=== PATIENT | male | born 1990 | race African-American/Black ===

== ENCOUNTER 2017-03-03 15:48 | Emergency (ER) | payer OTHER ==
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
[2017-03-03] MEDS ORDERED: ONDANSETRON *ODT* 4 MG TABLET SL ONE (15:59)
[2017-03-03] MEDS ORDERED: IBUPROFEN 400 MG TABLET (FP) PO ONE ×3 (15:59→16:13)
[2017-03-03 16:07] VITALS: BP 134/73; PULSE 83; TEMP 98.6; BMI 32.8
[2017-03-03] MEDS ORDERED: ONDANSETRON *ODT* 4 MG TABLET ONE (16:09)
== END 2017-03-03 17:31 | disposition home or self-care (01) ==
LOC: JER 15:48
DX: S86.911A Strain of unspecified muscle(s) and tendon(s) at lower leg level, right leg, initial encounter (principal); S40.021A Contusion of right upper arm, initial encounter; V03.90XA Pedestrian on foot injured in collision with car, pick-up truck or van, unspecified whether traffic or nontraffic accident, initial encounter; Y93.89 Activity, other specified; Y92.410 Unspecified street and highway as the place of occurrence of the external cause; R01.1 Cardiac murmur, unspecified; K21.9 Gastro-esophageal reflux disease without esophagitis
CPT/HCPCS: 73060-TC-RT; 73562-TC-RT; 99281-25

== ENCOUNTER 2017-05-21 15:37 | Emergency (ER) | payer SELFPAY ==
[2017-05-21 15:56] VITALS: BP 129/72; PULSE 84; BMI 33.4
--- NOTE | 2017-05-21 17:15 | PDOC ---
History of Present Illness - General Chief Complaint: Respiratory Stated Complaint: COUGHING BLOOD Time Seen by Provider: 05/21/17 16:12 History Source: Patient Exam Limitations: No Limitations - History of Present Illness Initial Comments: 05/21/17 17:32 Patient is a [27-year-old male with history of heart murmur, asthma, reflux, presents to the ER with nonspecific complaint. Initially reports cough this morning with blood-tinged sputum, pain to left testicle after mastubating, one week ago hit his head on a lamp and had headache. Patient's significant other in the room states that he has had intermittent tactile fevers chills bodyaches. Patient denies any chest pain or shortness of breath. Ambulatory without difficulty.] Past Medical History: [Denies]. Allergies: No known allergies Medications: [None] Family History: Non-contributory Social History: Denies smoking, alcohol use, or IVDU Vital signs on arrival are [notable for pulse of 96.] Review of Systems GENERAL/CONSTITUTIONAL: [No fever or chills. No weakness. No weight change.] HEAD, EYES, EARS, NOSE AND THROAT: [No change in vision. No ear pain or discharge. No sore throat. ] CARDIOVASCULAR: [No chest pain or shortness of breath.] RESPIRATORY: [No cough, wheezing, or hemoptysis.] GASTROINTESTINAL: [No nausea, vomiting, diarrhea or constipation. No rectal bleeding.] GENITOURINARY: [No dysuria, frequency, or change in urination.] MUSCULOSKELETAL: [No joint or muscle swelling or pain. No neck or back pain.] SKIN AND BREASTS: [No rash or easy bruising.] NEUROLOGIC: [No headache, vertigo, loss of consciousness, or loss of sensation.] PSYCHIATRIC: [No depression or anxiety.] ENDOCRINE: [No increased thirst. No abnormal weight change.] HEMATOLOGIC/LYMPHATIC: [No anemia, easy bleeding, or history of blood clots.] ALLERGIC/IMMUNOLOGIC: [No hives or skin allergy. No latex allergy.] Physical Exam: GENERAL: [The patient is awake, alert, and fully oriented, in no acute distress. ] HEAD: [Normal with no signs of trauma.] EYES: [Pupils equal, round and reactive to light, extraocular movements intact, sclera anicteric, conjunctiva clear.] ENT: [Ears normal, nares erythema, pus to left nares, oropharynx clear without exudates. Moist mucous membranes. No uvula deviation] NECK: [Normal range of motion, supple without lymphadenopathy, JVD, or masses.] LUNGS: [Breath sounds equal, clear to auscultation bilaterally. No wheezes, and no crackles.] HEART: [Regular rate and rhythm, normal S1 and S2 without murmur, rub or gallop. ] ABDOMEN: [Soft, nontender, normoactive bowel sounds. No guarding, no rebound. No masses. No bruising or abrasions] GENITALIA: Good cremasteric reflex, received patient with pain to the left testicle. NO edema. MUSCULOSKELETAL: [Normal range of motion, no edema. No clubbing or cyanosis. No cords, erythema, or tenderness. No CVA Tenderness with fist.] NEUROLOGICAL: [Cranial nerves II through XII grossly intact. Normal speech, normal gait.] SKIN: [Warm, Dry, normal turgor, no rashes or lesions noted.] 05/21/17 19:24 Past History - Past Medical History Allergies/Adverse Reactions: Allergies Allergy/AdvReac Type Severity Reaction Status Date / Time No Known Allergies Allergy Verified 05/21/17 15:52 Home Medications: Ambulatory Orders Amox-Tr/K Cl [Augmentin - 875Mg Tablet] 1 tab PO BID #14 tablet 05/21/17 Asthma: Yes Cardiac Disorders: Yes (HEART MURMUR) COPD: No GI Disorders: Yes (ACID REFLUX) Hypercholesterolemia: Yes (WHEN HE WAS TAKING PROTEIN SUPPLEMENTS) - Immunization History Immunization Up to Date: No - Suicide/Smoking/Psychosocial Hx Smoking Status: No Smoking History: Current some day smoker Have you smoked in the past 12 months: Yes Number of Cigarettes Smoked Daily: 0 Cigars Per Day: 0 Information on smoking cessation initiated: No Hx Alcohol Use: No Drug/Substance Use Hx: No Substance Use Type: None *Physical Exam - Vital Signs Last Vital Signs Temp Pulse Resp BP Pulse Ox 84 19 129/72 99 05/21/17 15:52 05/21/17 15:52 05/21/17 15:52 05/21/17 15:52 ED Treatment Course - RADIOLOGY Radiology Studies Ordered: Category Date Time Status CHEST PA & LAT [RAD] Stat Radiology 05/21/17 16:12 Taken SCROTUM AND CONTENTS US [US] Stat Ultrasound 05/21/17 17:03 Ordered Medical Decision Making - Medical Decision Making 05/21/17 19:18 A/P: Patient here with nonspecific complaint, cough, testicular pain, generalized pain. Chest x-ray was negative for acute cardiopulmonary disease, ultrasound of testicles negative. Lungs are clear, no chest pain or shortness of breath. I will discharge patient home, Alphonso, pt noted with sinusitis Tylenol for fever. If symptoms persist in 2 days follow-up with primary care doctor for any chest pain or shortness of breath return to ER. 05/21/17 19:19 *DC/Admit/Observation/Transfer Diagnosis at time of Disposition: Cough, Testicular pain, left, Sinusitis - Discharge Dispostion Disposition: HOME Condition at time of disposition: Stable Admit: No - Prescriptions Prescriptions: Amox-Tr/K Cl [Augmentin - 875Mg Tablet] 1 tab PO BID #14 tablet - Referrals Referrals: Karen Dawkins MD [Primary Care Provider] - - Patient Instructions Additional Instructions: If symptoms persist follow-up with primary care doctor on Tuesday. Motrin for fever and pain. If any increased cough, shortness of breath chest pain or other concerns return to ER - Post Discharge Activity
== END 2017-05-21 19:24 | disposition home or self-care (01) ==
LOC: JERFT 15:37
DX: N50.819 Testicular pain, unspecified (principal); R05 Cough; J32.9 Chronic sinusitis, unspecified; R01.1 Cardiac murmur, unspecified; K21.9 Gastro-esophageal reflux disease without esophagitis; J45.909 Unspecified asthma, uncomplicated; E78.00 Pure hypercholesterolemia, unspecified; F17.210 Nicotine dependence, cigarettes, uncomplicated
CPT/HCPCS: 71046-TC-FY; 76870-TC; 99281-25

== ENCOUNTER 2017-09-12 19:59 | Emergency (ER) | payer SELFPAY ==
--- NOTE | 2017-09-12 20:04 | PDOC ---
Rapid Medical Evaluation Time Seen by Provider: 09/12/17 20:00 Medical Evaluation: Allergies Allergy/AdvReac Type Severity Reaction Status Date / Time No Known Allergies Allergy Verified 05/21/17 15:52 09/12/17 20:01 I have performed a brief in-person evaluation of this patient. The patient presents with a chief complaint of: burning on urination X 3 days,s/ p latex condom, denies penile d/c,testicular pain or STI concerns, Pertinent physical exam findings: no penile rash, circumcised Male I have ordered the following: UA/UCX The patient will proceed to the fasttrack for further evaluation.
[2017-09-12 20:09] VITALS: BP 145/79; PULSE 74; TEMP 97.4; BMI 33.4
[2017-09-12 20:31] LABS: URINE APPEARANCE CLEAR; URINE BILIRUBIN NEGATIVE (<2.0 mg/dL); URINE COLOR COLORLESS; URINE GLUCOSE (UA) NEGATIVE (NEGATIVE); URINE KETONE NEGATIVE (NEGATIVE); URINE LEUK ESTERASE NEGATIVE (NEGATIVE); URINE NITRITE NEGATIVE (NEGATIVE); URINE PROTEIN NEGATIVE (NEGATIVE); URINE UROBILINOGEN NEGATIVE mg/dL (0.2-1.0)
[2017-09-12] MEDS ORDERED: AZITHROMYCIN 250 MG TABLET PO ONE (20:33)
[2017-09-12] MEDS ORDERED: AZITHROMYCIN 500 MG TABLET ONE (20:36)
--- NOTE | 2017-09-12 20:37 | PDOC ---
History of Present Illness - General Chief Complaint: Urinary Problem Stated Complaint: URINARY ISSUE Time Seen by Provider: 09/12/17 20:00 - History of Present Illness Initial Comments: Patient is a 27-year-old male without any comorbidities and extremely active sexual history. He states most of the time he uses condoms however last week he had multiple partners and he's had unprotected sex. For about a week now he's been having burning on urination. He has no other associated symptoms. 09/12/17 20:34 Past History - Past Medical History Allergies/Adverse Reactions: Allergies Allergy/AdvReac Type Severity Reaction Status Date / Time No Known Allergies Allergy Verified 05/21/17 15:52 Home Medications: Ambulatory Orders NK [No Known Home Medication] 09/12/17 Anemia: Yes Asthma: Yes Cardiac Disorders: Yes (HEART MURMUR) COPD: No DVT: No GI Disorders: Yes (ACID REFLUX) Hypercholesterolemia: Yes (WHEN HE WAS TAKING PROTEIN SUPPLEMENTS) - Immunization History Immunization Up to Date: No - Suicide/Smoking/Psychosocial Hx Smoking Status: No Smoking History: Former smoker Have you smoked in the past 12 months: Yes Number of Cigarettes Smoked Daily: 0 If you are a former smoker, when did you quit?: t-60 Cigars Per Day: 0 Information on smoking cessation initiated: Yes Hx Alcohol Use: No Drug/Substance Use Hx: No Substance Use Type: None Review of Systems - Review of Systems : Yes: Burning, Dysuria All Other Systems: Reviewed and Negative *Physical Exam - Vital Signs Last Vital Signs Temp Pulse Resp BP Pulse Ox 97.4 F L 74 20 145/79 100 09/12/17 20:03 09/12/17 20:03 09/12/17 20:03 09/12/17 20:03 09/12/17 20:03 - Physical Exam Comments: GENERAL: The patient is awake, alert, and fully oriented, in no acute distress. HEAD: Normal with no signs of trauma. EYES: conjunctiva clear. EXTREMITIES: Normal range of motion, no edema. NEUROLOGICAL: Cranial nerves II through XII grossly intact. Normal speech, normal gait. PSYCH: Normal mood, normal affect. SKIN: Warm, Dry, normal turgor, no rashes or lesions noted. External genitalia is normal 09/12/17 20:35 Medical Decision Making - Medical Decision Making NO evidence of UTI, Tx for GC/Chlamydia 09/12/17 21:03 *DC/Admit/Observation/Transfer Diagnosis at time of Disposition: STD (male) - Discharge Dispostion Disposition: HOME Condition at time of disposition: Stable Decision to Admit order: No - Referrals Referrals: Doyle Sanabria [Non Staff, Medical] - - Patient Instructions Printed Discharge Instructions: How to Detect and Treat STDs Additional Instructions: Please follow-up with your primary care physician for further evaluation and treatment options. You were treated for gonorrhea and chlamydia. Given the history we treat U without having the test results. He may also want to consider an HIV test in the future. Continue to use condoms every time. - Post Discharge Activity
== END 2017-09-12 21:08 | disposition home or self-care (01) ==
LOC: JERFT 19:59
DX: A64 Unspecified sexually transmitted disease (principal)
CPT/HCPCS: 36415; 81003; 87086; 87491; 87591; 99281-25

== ENCOUNTER 2019-02-19 21:45 | Emergency (ER) | payer SELFPAY ==
[2019-02-19 21:52] VITALS: BP 150/95; PULSE 79; TEMP 98.1
--- NOTE | 2019-02-19 21:58 | PDOC ---
History of Present Illness - General Chief Complaint: Penile Drainage Stated Complaint: SICK Time Seen by Provider: 02/19/19 21:55 History Source: Patient - History of Present Illness Initial Comments: 02/19/19 23:03 28-year-old male with history of chlamydia infection complaining of an ex partner reporting that she was exposed to "trichomonas and patient need treatment. Patient is currently asymptomatic" denies penile discharge, dysuria , testicular pain. Patient reports that the ex-partner had multiple partners while they had a relationship. Unsure of STI exposure. Past History - Past Medical History Allergies/Adverse Reactions: Allergies Allergy/AdvReac Type Severity Reaction Status Date / Time No Known Allergies Allergy Verified 05/21/17 15:52 Home Medications: Ambulatory Orders NK [No Known Home Medication] 09/12/17 Anemia: Yes Asthma: Yes Cardiac Disorders: Yes (HEART MURMUR) COPD: No DVT: No GI Disorders: Yes (ACID REFLUX) Hypercholesterolemia: Yes (WHEN HE WAS TAKING PROTEIN SUPPLEMENTS) - Immunization History Immunization Up to Date: No - Psycho Social/Smoking Cessation Hx Smoking Status: No Smoking History: Never smoked Have you smoked in the past 12 months: Yes Number of Cigarettes Smoked Daily: 0 If you are a former smoker, when did you quit?: t-60 Cigars Per Day: 0 Hx Alcohol Use: No Drug/Substance Use Hx: No Substance Use Type: None Review of Systems - Review of Systems Able to Perform ROS?: Yes Is the patient limited Italian proficient: No Constitutional: No: Symptoms Reported, See HPI, Chills, Diaphoresis, Fever, Loss of Appetite, Malaise, Night Sweats, Weakness, Weight Stable, Unintentional Wgt. Loss, Unexplained wgt Loss, Other : No: Symptoms Reported, See HPI, Burning, Dysuria, Discharge, Frequency, Flank Pain, Hematuria, Incontinence, Pain, Urgency, Testicular Mass, Testicular Swelling, Lesions, Testicular Pain, Other *Physical Exam - Vital Signs Last Vital Signs Temp Pulse Resp BP Pulse Ox 98.1 F 79 20 150/95 98 02/19/19 21:49 02/19/19 21:49 02/19/19 21:49 02/19/19 21:49 02/19/19 21:49 - Physical Exam General Appearance: Yes: Appropriately Dressed Male Genitalia: positive: normal genitalia Musculoskeletal: positive: Normal Inspection. negative: CVA Tenderness Integumentary: positive: Dry, Warm Neurologic: positive: Fully Oriented, Alert, Normal Mood/Affect Medical Decision Making - Medical Decision Making A: STI exposure P: GC UA Urine culture 02/19/19 23:08 Patient offered treatment. Patient refused ceftriaxone and azithromycin until test is resulted. Call back requested. Discharge - Discharge Information Problems reviewed: Yes Clinical Impression/Diagnosis: Sexually transmitted disease exposure Disposition: HOME - Follow up/Referral Referrals: Kali Edwards MD [Primary Care Provider] - - Patient Discharge Instructions Patient Printed Discharge Instructions: Facts About Sexually Transmitted Infections Additional Instructions: Your official test is pending we will call you if it comes back positive. It is important that your partners are tested as well. - Post Discharge Activity Work/Back to School Note: Back to Work
[2019-02-19 22:26] LABS: URINE APPEARANCE CLEAR; URINE BILIRUBIN NEGATIVE (NEGATIVE); URINE COLOR YELLOW; URINE GLUCOSE (UA) NEGATIVE (NEGATIVE); URINE KETONE NEGATIVE (NEGATIVE); URINE LEUK ESTERASE NEGATIVE (NEGATIVE); URINE NITRITE NEGATIVE (NEGATIVE); URINE PROTEIN NEGATIVE (NEGATIVE)
[2019-02-19] MEDS ORDERED: AZITHROMYCIN 500 MG TABLET PO ONE (22:42)
[2019-02-19] MEDS ORDERED: AZITHROMYCIN 250 MG TABLET ONE (23:05)
== END 2019-02-19 23:10 | disposition home or self-care (01) ==
LOC: JERFT 21:45
DX: Z20.2 Contact with and (suspected) exposure to infections with a predominantly sexual mode of transmission (principal); Z86.19 Personal history of other infectious and parasitic diseases; K21.9 Gastro-esophageal reflux disease without esophagitis; D64.9 Anemia, unspecified; J45.909 Unspecified asthma, uncomplicated
CPT/HCPCS: 36415; 81003; 87086; 87491; 87591; 99282-25

== ENCOUNTER 2019-04-07 10:33 | Emergency (ER) | payer SELFPAY ==
[2019-04-07 10:45] VITALS: BP 151/82; PULSE 96; TEMP 97.4; BMI 35.2
--- NOTE | 2019-04-07 11:21 | PDOC ---
History of Present Illness - General Chief Complaint: Cold Symptoms Stated Complaint: COLD SYMPTOMS Time Seen by Provider: 04/07/19 10:59 History Source: Patient Exam Limitations: No Limitations - History of Present Illness Initial Comments: 04/07/19 11:40 Patient is a 28-year-old male who presents to the ED with complaint of red itchy eyes, itchy and sore throat, nasal drainage and cough with sputum production for the last 2 days. He denies any fever or body aches. He does admit that his daughter has influenza A and she was diagnosed last week. He denies any abdominal pain or vomiting. He has not taken anything for his symptoms. He has a history of asthma and denies any allergies to medications. Past History - Past Medical History Allergies/Adverse Reactions: Allergies Allergy/AdvReac Type Severity Reaction Status Date / Time No Known Allergies Allergy Verified 04/07/19 10:45 Home Medications: Ambulatory Orders Benzonatate [Tessalon Pearls -] 100 mg PO TID PRN #21 capsule 04/07/19 Anemia: Yes Asthma: Yes Cardiac Disorders: Yes (HEART MURMUR) COPD: No DVT: No GI Disorders: Yes (ACID REFLUX) Hypercholesterolemia: Yes (WHEN HE WAS TAKING PROTEIN SUPPLEMENTS) - Immunization History Immunization Up to Date: No - Psycho Social/Smoking Cessation Hx Smoking Status: No Smoking History: Unknown if ever smoked Have you smoked in the past 12 months: No Number of Cigarettes Smoked Daily: 0 If you are a former smoker, when did you quit?: t-60 Cigars Per Day: 0 Information on smoking cessation initiated: No Hx Alcohol Use: No Drug/Substance Use Hx: No Substance Use Type: None Review of Systems - Review of Systems Comments:: 04/07/19 11:41 - Review of Systems Able to Perform ROS?: Yes Constitutional: No: Fever, Chills, Loss of Appetite, Night Sweats, Weakness HEENTM: No: Eye Pain, Vision changes, Ear Pain, Throat Pain, Throat Swelling, Mouth Pain, Difficulty Swallowing, Positive red itchy eyes, positive throat itching and soreness Respiratory: No: Shortness of Breath, Wheezing, Sputum Production, Positive Cough Cardiac (ROS): No: Chest Pain, Chest Tightness, Palpitations, Irregular Heart , Beat, Edema ABD/GI: No: Nausea, Vomiting, Abdominal Pain, Diarrhea : No Dysuria, No Hematuria, No Frequency, No Urgency Musculoskeletal: No: Muscle Pain, Back Pain, Joint Pain, Muscle Weakness, Neck Pain Integumentary: No: Lesions, Rash Neurological: No: Headache, Numbness, Tingling, Weakness, Speech Difficulties *Physical Exam - Vital Signs Last Vital Signs Temp Pulse Resp BP Pulse Ox 97.4 F L 96 H 16 151/82 100 04/07/19 10:41 04/07/19 10:41 04/07/19 10:41 04/07/19 10:41 04/07/19 10:41 - Physical Exam 04/07/19 11:42 - Physical Exam General Appearance: Nourished, Appropriately Dressed, No Distress HEENT: EOMI, Normal Voice, No Pharyngeal Erythema, No Muffled/Hoarse voice, No Tonsillar Exudate, No Tonsillar Erythema, + Nasal Congestion, + Rhinorrhea, Hearing Grossly Normal, L TM normal, R TM not visualized secondary to cerumen i mpaction, No TM Bulging, No TM Dullness, No TM Erythema; b/l eyes injected with watery discharge appreciated, no purulent discharge and no swelling appreciated. Neck: Supple, No Lymphadenopathy (R), No Lymphadenopathy (L), No Rigidity, No Decreased range of motion Respiratory/Chest: Lungs Clear, Normal Breath Sounds. No Respiratory Distress, No Accessory Muscle Use; + wet sounding cough appreciated Cardiovascular: Regular Rhythm, Regular Rate, S1, S2 Gastrointestinal/Abdominal: Normal Bowel Sounds, Soft. Non-tender, No Guarding , No Rebound, No Rigidity Musculoskeletal: Normal Inspection. No Decreased Range of Motion Extremity: Normal Capillary Refill, Normal Inspection Integumentary: Normal Color, Dry. No Rash Neurologic: reference archivist II-XII NML intact, Fully Oriented, Alert, Normal Mood/Affect, Normal Response Medical Decision Making - Medical Decision Making 04/07/19 11:45 Patient is a 28-year-old male with red and itching eyes, productive cough and itching and sore throat. He has a history of asthma without any adventitious lung sounds. I have made the patient aware that his symptoms are likely secondary to allergic conjunctivitis/rhinitis. Secondary to him being afebrile and without body aches, it is unlikely that he has influenza. I have sent a prescription for Tessalon Perles to his pharmacy and he has been instructed on eye hygiene. Antibiotic drops are not indicated as his conjunctivitis is likely allergic. I have suggested antihistamine/allergy pills such as Claritin , Zyrtec or Karyna which are all [id number]. He should follow-up with his primary doctor within 1 to 2 days for repeat evaluation. Discharge - Discharge Information Problems reviewed: Yes Clinical Impression/Diagnosis: Cough in adult Allergic conjunctivitis and rhinitis Qualifiers: Laterality: bilateral Qualified Code(s): H10.13 - Acute atopic conjunctivitis, bilateral Condition: Stable Disposition: HOME - Additional Discharge Information Prescriptions: Benzonatate [Tessalon Pearls -] 100 mg PO TID PRN #21 capsule PRN Reason: Cough - Follow up/Referral Referrals: Parish Calvo MD [Primary Care Provider] - - Patient Discharge Instructions Patient Printed Discharge Instructions: DI for Conjunctivitis, DI for Common Cold Additional Instructions: Get plenty of rest and drink plenty of fluids. Take the cough tablets as needed for cough. You should consider taking Claritin, Zyrtec or Karyna for your allergy-like symptoms. Follow-up with your primary doctor within 1 to 2 days for repeat evaluation. - Post Discharge Activity
== END 2019-04-07 11:34 | disposition home or self-care (01) ==
LOC: JERFT 10:33
DX: H10.13 Acute atopic conjunctivitis, bilateral (principal); J00 Acute nasopharyngitis [common cold]
CPT/HCPCS: 99282-25

== ENCOUNTER 2020-07-28 23:37 | Emergency (ER) | payer SELFPAY ==
[2020-07-28 23:59] VITALS: BP 141/88; PULSE 94; TEMP 98.6; BMI 30.4
[2020-07-29] MEDS ORDERED: SODIUM CHLORIDE 1,000 ML IV STA (00:38)
[2020-07-29] MEDS ORDERED: ACETAMINOPHEN 1000 MG/100 ML VIAL (NON FORMULARY) IVPB ONE (00:38)
[2020-07-29] MEDS ORDERED: METOCLOPRAMIDE HCL INJECTION 10 MG/2 ML VIAL IVPUSH ONE (00:38)
[2020-07-29] MEDS ORDERED: METOCLOPRAMIDE HCL INJECTION 10 MG/2 ML VIAL ONE (00:41)
[2020-07-29] MEDS ORDERED: ACETAMINOPHEN INJECTION 100 ML IVPB ONE (00:42)
== END 2020-07-29 01:57 | disposition home or self-care (01) ==
LOC: JER 23:37
PROC: 3E033NZ Introduction of Analgesics, Hypnotics, Sedatives into Peripheral Vein, Percutaneous Approach (ICD-10-PCS; principal; 2020-07-29)
PROC: 3E033GC Introduction of Other Therapeutic Substance into Peripheral Vein, Percutaneous Approach (ICD-10-PCS; 2020-07-29)
PROC: 3E0337Z Introduction of Electrolytic and Water Balance Substance into Peripheral Vein, Percutaneous Approach (ICD-10-PCS; 2020-07-29)
DX: R51.9 Headache, unspecified (principal)
CPT/HCPCS: 70450-TC; 99285-25; J0131

== ENCOUNTER 2021-01-19 20:03 | Emergency (ER) | payer OTHER ==
[2021-01-19 20:12] VITALS: BP 128/86; PULSE 80; TEMP 97.8; BMI 34.8
[2021-01-19] MEDS ORDERED: LIDOCAINE HCL 1%, 10 MG/ML (50 mL VIAL) SQ ONE (20:42)
[2021-01-19] MEDS ORDERED: BUPIVACAINE HCL/PF 0.5% (5 MG/ML) 30 ML VIAL IJ ONE (20:42)
== END 2021-01-19 21:21 | disposition home or self-care (01) ==
LOC: JERFT 20:03
DX: K04.7 Periapical abscess without sinus (principal)
CPT/HCPCS: 99283-25

== ENCOUNTER 2021-06-29 18:54 | Emergency (ER) | payer OTHER ==
[2021-06-29 19:28] VITALS: BP 122/80; PULSE 78; TEMP 98.9; BMI 35.7
[2021-06-29] MEDS ORDERED: ACETAMINOPHEN 500 MG TABLET (FP) PO ONE (20:34)
[2021-06-29] MEDS ORDERED: ACETAMINOPHEN 500 MG TABLET (FP) ONE (20:37)
== END 2021-06-29 21:37 | disposition home or self-care (01) ==
LOC: JERFT 18:54 → JER 18:54 → JERFT 21:37
DX: S39.012A Strain of muscle, fascia and tendon of lower back, initial encounter (principal); J02.9 Acute pharyngitis, unspecified; X50.0XXA Overexertion from strenuous movement or load, initial encounter
CPT/HCPCS: 72100-TC-FY; 99283-25

== ENCOUNTER 2023-01-14 18:08 | Emergency (ER) | payer OTHER ==
[2023-01-14 18:24] VITALS: BP 124/78; PULSE 72; RESP 18; TEMP 98.8; BMI 33.4
[2023-01-14 20:26] LABS: EPI CELLS 5 /uL (0-25.1); HYALINE CASTS 0 /uL (0-3.1); URINE APPEARANCE CLEAR; URINE BACTERIA 4 /uL (0-1359); URINE BILIRUBIN NEGATIVE (NEGATIVE); URINE COLOR YELLOW; URINE GLUCOSE (UA) NEGATIVE (NEGATIVE); URINE KETONE NEGATIVE (NEGATIVE); URINE LEUK ESTERASE 1+ (NEGATIVE); URINE NITRITE NEGATIVE (NEGATIVE); URINE PROTEIN NEGATIVE (NEGATIVE); URINE RBC 15 /uL (0-23.9); URINE WBC 66 /uL (0-25.8)
[2023-01-14] MEDS ORDERED: CEFUROXIME AXETIL 500 MG TABLET PO ONE (20:32)
== END 2023-01-14 21:04 | disposition home or self-care (01) ==
LOC: JER 18:08 → JERFT 18:08
DX: R30.0 Dysuria (principal); N39.0 Urinary tract infection, site not specified
CPT/HCPCS: 36415; 81003; 87086; 87491; 87591; 87661; 99283-25

== ENCOUNTER 2023-10-16 18:39 | Emergency (ER) | payer OTHER ==
[2023-10-16 18:46] VITALS: BP 138/81; PULSE 79; RESP 16; TEMP 98.3; BMI 30.4
[2023-10-16 19:36] LABS: URINE APPEARANCE CLEAR; URINE BILIRUBIN NEGATIVE (NEGATIVE); URINE COLOR YELLOW; URINE GLUCOSE (UA) NEGATIVE (NEGATIVE); URINE KETONE NEGATIVE (NEGATIVE); URINE LEUK ESTERASE NEGATIVE (NEGATIVE); URINE NITRITE NEGATIVE (NEGATIVE); URINE PROTEIN NEGATIVE (NEGATIVE)
[2023-10-16] MEDS ORDERED: ACETAMINOPHEN 325 MG TABLET (FP) ONE (20:05)
[2023-10-16] MEDS ORDERED: IBUPROFEN 600 MG TABLET (FP) PO ONE (20:09)
[2023-10-16] MEDS: IBUPROFEN 600 MG TABLET (FP) PO ONE (20:11)
[2023-10-16] MEDS: ACETAMINOPHEN 500 MG TABLET (FP) PO ONE (20:12)
[2023-10-16] MEDS ORDERED: KETOROLAC TROMETHAMINE 15 MG/ML VIAL ONE (20:12)
[2023-10-16] MEDS: KETOROLAC TROMETHAMINE 15 MG/ML VIAL IM ONE (20:16)
== END 2023-10-16 20:45 | disposition home or self-care (01) ==
LOC: JER 18:39
PROC: 3E0233Z Introduction of Anti-inflammatory into Muscle, Percutaneous Approach (ICD-10-PCS; principal; 2023-10-16)
DX: N50.811 Right testicular pain (principal); R30.0 Dysuria; A64 Unspecified sexually transmitted disease
CPT/HCPCS: 36415; 76870-TC; 81003; 87086; 87491; 87591; 99284-25

== ENCOUNTER 2023-10-20 17:51 | Emergency (ER) | payer OTHER ==
[2023-10-20 18:10] VITALS: BP 127/75; PULSE 69; RESP 16; TEMP 98; BMI 30.4
[2023-10-20] MEDS ORDERED: AZITHROMYCIN 500 MG TABLET ONE (19:09)
[2023-10-20] MEDS: AZITHROMYCIN 250 MG TABLET PO ONE (19:14)
== END 2023-10-20 19:14 | disposition home or self-care (01) ==
LOC: JERFT 17:51 → JER 17:51 → JERFT 19:14
DX: A74.9 Chlamydial infection, unspecified (principal); N50.811 Right testicular pain
CPT/HCPCS: 99283-25